=== PATIENT | male | born 1950 | race Caucasian/White ===

== ENCOUNTER → 2018-05-24 16:43 | Outpatient (CLI) | payer SELFPAY ==
[2018-05-24 18:02] LABS: PSA,Total - Annual Screen 0.27 ng/mL (0.00-4.00)
== END ==
PROVIDERS: Family Provider Family Medicine; PCP Family Medicine; Referring Provider Urology; Visit Provider Urology
DX: Z12.5 Encounter for screening for malignant neoplasm of prostate (principal)
CPT/HCPCS: 36415; 84153; G0103

== ENCOUNTER → 2018-11-05 17:49 | Outpatient (CLI) | payer SELFPAY ==
[2018-11-02 13:10] VITALS: BMI 22.6
--- NOTE | 2018-11-05 18:02 | CT_ITS ---
STUDY: CT CHEST WITH CONTRAST REASON FOR EXAM: Male, 67 years old. History of a neoplasm of the vocal cords. RADIATION DOSAGE (If Supplied By Facility): CTDIvol = ( 15.27 ) mGy, DLP = ( 532.60 ) mGycm TECHNIQUE: Transaxial imaging was performed following intravenous administration of 100ML IV Isovue 300. Multiplanar coronal and sagittal images were reformatted. Individualized dose optimization techniques were used for this CT. COMPARISON: None. FINDINGS: There is a 5.5 mm well-defined nodule in calcific nodule in the anterior aspect of the right lower lobe as seen on axial image #59. A similar-appearing noncalcified nodule is seen in the lateral aspect of the right lower lobe as seen on axial image #69. This measures 5.1 mm. There are other several subcentimeters nodules in the right lower lobe. There is also evidence of a 3.9 mm nodular density in the posterior segment of the left lower lobe as seen on axial image #85. Calcified granuloma in the left upper lobe laterally. There is no demonstrated pleural abnormality. Normal heart and pericardium. Normal mediastinum. Calcified left hilar lymph nodes. Normal enhanced pulmonary arteries. Normal aorta arch and descending thoracic aorta. There are multi-level degenerative changes of the thoracic spine. Small calcified gallstones. CT/Chest WITH Contrast IMPRESSION: Several subcentimeter nodular densities are seen in the right lung as described. A calcified granuloma is seen in the left upper lobe as well as a noncalcified nodule in the left lower lobe. A six-month follow-up examination is recommended. Electronically Signed: Rui Barber, at 13:40 EDT , Service support ,
--- NOTE | 2018-11-05 18:03 | CT_ITS ---
STUDY: CT SOFT TISSUE NECK WITH CONTRAST REASON FOR EXAM: Male, 67 years old. 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 RADIATION DOSAGE (If Supplied By Facility): CTDIvol = ( 18.01 ) mGy, DLP = ( 490.23 ) mGycm TECHNIQUE: The patient was scanned in a multi-detector CT scanner. High resolution transaxial imaging was performed following intravenous administration of 100ML IV Isovue 300. Sagittal and coronal images were reconstructed. Individualized dose optimization techniques were used for this CT. COMPARISON: None. FINDINGS: Normal bilateral parotid glands. Normal bilateral paint dipper spaces. Normal bilateral parapharyngeal spaces. Normal bilateral carotid spaces. Normal bilateral sublingual and submandibular glands and spaces. Normal visualized nasopharynx. Normal retropharyngeal space. Normal perivertebral space. Normal visualized bilateral faucial tonsils. The visualized tongue, tongue base and oropharynx are normal. The visualized cervical lymph nodes (levels I-) are within normal size limits, and maintain normal morphology. There is no demonstrated solid or cystic mass lesion. There is no abnormal contrast enhancement. Normal epiglottis, bilateral vallecula and hypopharynx. The pre-epiglottic and paraglottic adipose spaces are normal. There is a 7 mm x 4.8 mm soft tissue density arising from the anterior aspect of the left vocal cord. Normal subglottic trachea. Normal bilateral lobes of the thyroid gland. Normal visualized pulmonary apices. Normal visualized paranasal sinuses. There is multilevel degenerative changes of the cervical spine. CT/Soft Tissue Neck WITH Contrast IMPRESSION: Focal soft tissue prominence in the anterior aspect of the left vocal cord. Electronically Signed: Rui Barber, at 13:35 EDT , Service support ,
[2018-11-05 18:11] LABS: CREATININE FINGERSTICK 0.9 mg/dL (0.70-1.30)
== END ==
PROVIDERS: Family Provider Family Medicine; PCP Family Medicine; Referring Provider Student in an Organized Health Care Education/Training Program; Visit Provider Student in an Organized Health Care Education/Training Program
DX: D38.0 Neoplasm of uncertain behavior of larynx (principal)
CPT/HCPCS: 70491; 71260; Q9967

== ENCOUNTER → 2020-01-09 06:52 | Outpatient (CLI) | payer SELFPAY ==
[2018-11-02 13:10] VITALS: BMI 22.6
[2019-11-23 09:38] VITALS: BMI 25.8
--- NOTE | 2020-01-09 06:56 | CT_ITS ---
STUDY: CT SOFT TISSUE NECK WITHOUT CONTRAST REASON FOR EXAM: Male, 69 years old. [place] RADIATION PLANNING CT, HAD CHEMO AND TRACHEOSTOMY RADIATION DOSAGE (If Supplied By Facility): CTDIvol = ( 12.17 ) mGy, DLP = ( 891.65 ) mGycm TECHNIQUE: The patient was scanned in a multi-detector CT scanner. High resolution transaxial imaging was performed without the administration of intravenous contrast material. Individualized dose optimization techniques were used for this CT. COMPARISON: Comparison is made with prior study dated November 05, 2018. FINDINGS: A tracheostomy tube is seen within the trachea. Normal bilateral parotid glands. Normal bilateral [employer] spaces. Normal bilateral parapharyngeal spaces. Normal bilateral carotid spaces. Normal bilateral sublingual and submandibular glands and spaces. Normal visualized nasopharynx. Normal retropharyngeal space. Normal perivertebral space. Normal visualized bilateral faucial tonsils. The visualized tongue, tongue base and oropharynx are normal. The visualized cervical lymph nodes (levels I-) are within normal size limits, and maintain normal morphology. There is no demonstrated solid or cystic mass lesion. Persistent thickening of the left vocal cord. There is a 2 mm rounded air collection within the left vocal cord most likely secondary to prior biopsy. There is thickening of the anterior commissure as well. This is unchanged. Normal subglottic trachea. Normal bilateral lobes of the thyroid gland. Normal visualized pulmonary apices. Normal visualized paranasal sinuses. There is multilevel degenerative changes of the cervical spine. CT/Soft Tissue Neck W/WO Contrast IMPRESSION: Stable thickening of the left vocal cord with a tiny air bubble within suggestive of prior biopsy. Persistent soft tissue prominence of the anterior commissure. A tracheostomy tube is in situ. Electronically Signed: Rui Barber, at 9:35 EDT , Service support ,
== END ==
PROVIDERS: PCP Family Medicine; Referring Provider Radiology Radiation Oncology; Visit Provider Radiology Radiation Oncology
DX: C32.3 Malignant neoplasm of laryngeal cartilage (principal)
CPT/HCPCS: 70492; Q9967

== ENCOUNTER → 2020-01-13 06:33 | Outpatient (CLI) | payer SELFPAY ==
[2018-11-02 13:10] VITALS: BMI 22.6
[2019-11-23 09:38] VITALS: BMI 25.8
== END ==
PROVIDERS: PCP Family Medicine; Referring Provider Radiology Radiation Oncology; Visit Provider Radiology Radiation Oncology
DX: C32.9 Malignant neoplasm of larynx, unspecified (principal)
CPT/HCPCS: 77014

== ENCOUNTER → 2021-02-25 08:50 | Outpatient (CLI) | payer SELFPAY ==
[2018-11-02 13:10] VITALS: BMI 22.6
[2019-11-23 09:38] VITALS: BMI 25.8
--- NOTE | 2021-02-25 08:56 | CT_ITS ---
STUDY: CT SOFT TISSUE NECK WITH CONTRAST REASON FOR EXAM: Male, 70 years old. [place] -- FLAT TABLE TOP MASK. Radiation treatment planning examination. RADIATION DOSAGE (If Supplied By Facility): CTDIvol = ( 19.39 ) mGy, DLP = ( 576.64 ) mGycm TECHNIQUE: The patient was scanned in a multi-detector CT scanner. High resolution transaxial imaging was performed following intravenous administration of IV 75ML ISOVUE 300. Sagittal and coronal images were reconstructed. Individualized dose optimization techniques were used for this CT. COMPARISON: Comparison is made with prior study dated 01/09/2020. FINDINGS: The patient is status post laryngectomy with the bilateral cervical resection more prominent on the right side. There is evidence of diffuse increased markings within the subcutaneous fat. Surgical clips are seen in the anterior aspect of the mid cervical region with the findings suggestive of a TRAM flap reconstruction on the right side. CT/Soft Tissue Neck WITH Contrast IMPRESSION: Status post neck dissection with reconstruction. Postoperative changes are seen. Increased markings in the subcutaneous fat. Because of thickening of the right maxillary sinus. Electronically Signed: Rui Barber MD at 13:51 EDT , Service support ,
== END ==
PROVIDERS: PCP Family Medicine; Referring Provider Radiology Radiation Oncology; Visit Provider Radiology Radiation Oncology
DX: C32.9 Malignant neoplasm of larynx, unspecified (principal)
CPT/HCPCS: 70491; Q9967